=== PATIENT | female | born 1950 | race Caucasian/White ===

== ENCOUNTER 2018-11-13 21:28 | Inpatient (IN) ==
[2018-11-13] MEDS ORDERED: VANCOMYCIN HCL 1,750 MG in SODIUM CHLORIDE 0.9% 500 ML IV ONE (22:59)
[2018-11-13] MEDS ORDERED: VANCOMYCIN CONSULT ACTIVE PRN (22:59)
[2018-11-13] MEDS ORDERED: SODIUM CHLORIDE 0.9% 1000ML 1,000 ML IV SCH (23:00)
[2018-11-13] MEDS ORDERED: ACETAMINOPHEN 500 MG TAB PO STA (23:00)
[2018-11-13 23:20] LABS: Hematocrit (blood only) 32.4 % (37-47); Hemoglobin 11.1 g/dL (12.0-16.0); Mean Corpuscular Hgb Conc 34.3 g/dL (32-36); Mean Corpuscular Volume 87.8 fL (80-100); Platelet Count 157 K/uL (130-400); RDW Coefficient of Variation 14.3 % (11.5-14.5); RDW Standard Deviation 45.7 fL (36.4-46.3); Red Blood Count 3.69 M/uL (4.2-5.4); White Blood Count 16.51 K/uL (4.8-10.8)
[2018-11-13 23:38] LABS: Alanine Aminotransferase 27 U/L (12-78); Albumin Level 2.9 gm/dl (3.4-5.0); Aspartate Aminotransferase 21 U/L (15-37); BUN Creatinine Ratio 18.4 (10-20); Blood Urea Nitrogen 17 mg/dl (7-18); Calcium 7.9 mg/dl (8.5-10.1); Carbon Dioxide 21 mmol/L (21-32); Chloride 106 mmol/L (98-107); Creatinine Clr Calc Pharmacy 58.8 ml/min; Est GFR (African American) 75.1; Est GFR (Non-African American) 64.8; Glucose 105 mg/dl (70-99); Potassium 3.7 mmol/L (3.5-5.1); Sodium 136 mmol/L (136-145)
[2018-11-13 23:43] LABS: Albumin Globulin Ratio 0.9 (0.9-2); Alkaline Phosphatase 58 U/L (45-117); Bilirubin,Total 1.1 mg/dl (0.2-1); Globulin 3.2 gm/dl (2.5-4.0); Total Protein 6.1 gm/dl (6.4-8.2); Troponin I < 0.015 ng/ml (0-0.045)
[2018-11-13] MEDS ORDERED: LACTATED RINGER'S 1,000 ML IV ONE (23:48)
[2018-11-13 23:55] LABS: Basophils # (auto) 0.01 K/uL (0-0.2); Basophils % (auto) 0.1 %; Dohle Bodies Occasional; Immature Granulocytes # (auto) 0.04 K/uL (0.00-0.02); Immature Granulocytes % (auto) 0.2 %; Lymphocytes # (auto) 0.83 K/uL (1.2-3.4); Monocytes # (auto) 1.22 K/uL (0.11-0.59); Monocytes % (auto) 7.4 %; Neutrophils # (auto) 14.41 K/uL (1.4-6.5); Neutrophils % (auto) 87.3 %
--- NOTE | 2018-11-14 01:04 | Emergency Department Note ---
Entered by Marychuy Mcgowan acting as a scribe for History of Present Illness General Chief complaint: Hypotension Stated complaint: LOW BP, FEVER Source: patient History of Present Illness Onset (ago): unknown (this afternoon) Location: left and right (generalized) Maximum Pain Intensity: 5 Quality: + other (hypotension) Associated symptoms: + denies other symptoms (abdominal pain), + fever/chills, + headaches, + weakness and + other (diarrhea); no cough, no nausea/vomiting and no shortness of breath The patient is a 68 year old female who presents to the Emergency Room with complaints of hypotension at home this afternoon. The patient was seen here this morning and was discharged with a diagnosis of cellulitis on her RLE. She states her symptoms started 2 days. She reports hen she was home this afternoon her blood pressure dropped to 88/55. She complains of weakness, diarrhea, headache, and fevers. She denies nausea, shortness of breath, cough, or abdominal pain. Home Medications Home Medications Medication Instructions Recorded Confirmed Type cholecalciferol (vitamin D3) 2,000 unit PO DAILY 05/01/18 11/13/18 History [Vitamin D3] digoxin 125 mcg PO QAM 05/01/18 11/13/18 History furosemide 20 mg PO QAM 05/01/18 11/13/18 History metoprolol succinate 25 mg PO QAM 05/01/18 11/13/18 History omega 4-gyi-cin-fish oil [Fish Oil] 1 cap PO DAILY 05/01/18 11/13/18 History potassium chloride 10 meq PO QAM 05/01/18 11/13/18 History warfarin [Jantoven] 2.5 mg PO 5XWK 05/01/18 11/13/18 History warfarin [Jantoven] 5 mg PO 2XWK 05/01/18 11/13/18 History cephalexin [Keflex] 500 mg PO QID 7 Days #28 cap 11/13/18 11/13/18 Rx Allergies Allergy/AdvReac Type Severity Reaction Status Date / Time No Known Allergies Allergy Verified 11/13/18 07:28 Past Med/Surg History Medical History Angiomyolipoma of left kidney [address] Pierce Atrial fibrillation CARDIOVERSION X2. UNSUCCESSFUL. History of cardioversion Hypertension On anticoagulant therapy Osteoarthritis Sleep apnea CPAP WITH 2LPM AT HS. Surgical History History of bilateral tubal ligation History of cholecystectomy History of colonoscopy History of cystoscopy Left radial head fracture REPAIR with RADIAL HEAD IMPLANT S/P laparoscopy FOR REMOVAL OF CYST FROM LEFT KIDNEY (BENIGN) Family History Brother Family history of diabetes mellitus Social History Preferred Language: Micronesian Communication Ability: Effective Beliefs That Will Affect Care: None Current Living Situation: Spouse Feels Safe at Home: Yes Smoking Status: Never smoker Tobacco Type: cigarettes Cigarettes Per Day: 10 CIGS X 20 YEARS Second Hand Exposure: No Hx Alcohol Use: Yes Alcohol type: wine Hx Substance Use: No Review of Systems See HPI for pertinent positives & negatives. and A total of 10 systems reviewed and were otherwise negative Physical Exam Vital Signs Vital Signs - 24 hr 11/13/18 21:36 11/13/18 22:20 11/13/18 23:00 Temperature 38.3 C H Temperature Source Oral Sepsis Recent Fever Within 48 Hours Yes Sepsis New/Unexplained Change in Mental Status No Sepsis Action Taken by Nursing No Action Required Pulse Rate 93 H 94 H Pulse Rate [Right Finger] 86 Pulse Rate from SpO2 Sensor Pulse Rhythm Regular Pulse Strength Normal Respiratory Rate 24 20 19 Respiratory Effort / Characteristics Non-Labored Respiratory Depth Normal Respiratory Pattern Regular Blood Pressure 110/64 98/60 L Blood Pressure [Right Arm] 113/55 L Blood Pressure Mean 79 72 Blood Pressure Mean [Right Arm] 74 Blood Pressure Position Sitting Pulse Oximetry 94 90 Oxygen Delivery Method Room Air Room Air 11/14/18 00:00 11/14/18 00:23 11/14/18 00:30 Temperature 37.0 C Temperature Source Oral Sepsis Recent Fever Within 48 Hours Sepsis New/Unexplained Change in Mental Status Sepsis Action Taken by Nursing Pulse Rate 93 H 76 Pulse Rate [Right Finger] Pulse Rate from SpO2 Sensor 90 78 Pulse Rhythm Pulse Strength Respiratory Rate 18 20 Respiratory Effort / Characteristics Respiratory Depth Respiratory Pattern Blood Pressure 91/54 L 94/52 L Blood Pressure [Right Arm] Blood Pressure Mean 66 66 Blood Pressure Mean [Right Arm] Blood Pressure Position Pulse Oximetry 91 90 Oxygen Delivery Method GENERAL: Awake, alert, fatigued-appearing, in no distress HENT: Normocephalic, atraumatic. Oropharynx unremarkable. EYES: Normal conjunctiva. Sclera non-icteric. NECK: Supple. No nuchal rigidity. RESPIRATORY: Clear to auscultation. Normal respiratory effort. CARDIAC: Normal rate. Irregular rhythm. Extremities warm and well perfused. GI: Soft, non-distended. No tenderness to palpation. No rebound or guarding. No masses. RECTAL: Deferred. MUSCULOSKELETAL: Atraumatic. Chest examination reveals no tenderness. There is no CVA tenderness to palpation. LOWER EXTREMITIES: Calves are equal size bilaterally and non-tender. 1+ lower extremity edema. Erythema and tenderness RLE below knee, no crepitus. NVI RLE. NEURO: Normal sensorium. No sensory or motor deficits noted. No facial droop. SKIN: Warm and dry. No jaundice noted. Course 4: The patient was evaluated in room C2B. A complete history and physical exam was performed. 0005: I discussed the patient's case with Dr. Whelan [facility]. He agrees to evaluate the patient for further management. 0010: I updated the patient on her test results. She is in agreement with the treatment plan. Consultations Consultation #1: I discussed the patient's case with Dr. Whelan [facility]. He agrees to evaluate the patient for further management. Time: 00:05 Administered Medications Vancomycin HCl 1,750 mg/ (Sodium Chloride) 535 mls @ 200 mls/hr IV NOW ONE; Protocol Stop: 11/14/18 01:39 Last Admin: 11/14/18 00:17 Dose: 200 mls/hr Documented by: [id number] Discontinued Medications Acetaminophen (Tylenol) 1,000 mg PO NOW STA Stop: 11/13/18 23:01 Last Admin: 11/13/18 23:18 Dose: 1,000 mg Documented by: [id number] Sodium Chloride (Nss 1000ml) 1,000 mls @ 999 mls/hr IV .Q1H1M SERGIO Stop: 11/14/18 00:00 Last Infusion: 11/14/18 00:32 Dose: 0 mls/hr Documented by: [id number] Admin: 11/13/18 23:18 Dose: 999 mls/hr Documented by: [id number] Lactated Ringer's (Lr) 1,000 mls @ 999 mls/hr IV .Q1H1M ONE Stop: 11/14/18 00:48 Last Admin: 11/14/18 00:22 Dose: 999 mls/hr Documented by: [id number] Medical Decision Making Differential Diagnosis Etiologies such as viral syndrome, otitis, pharyngitis, pneumonia, influenza, meningitis, urinary tract infection, sepsis, bacteremia, as well as others were entertained. Medical Records Attestation: I reviewed the patient's medical records. Home Medications Current Medication List: was personally reviewed by me Laboratory Data Attestation: I reviewed the patient's lab results. Result diagrams: 11/13/18 23:11 11/13/18 23:11 Lab Results 11/13/18 11/13/18 11/13/18 Range/Units 23:11 23:11 23:11 WBC 16.51 H (4.8-10.8) K/uL RBC 3.69 L (4.2-5.4) M/uL Hgb 11.1 L (12.0-16.0) g/dL Hct 32.4 L (37-47) % MCV 87.8 (80-100) fL MCH 30.1 (25-34) pg MCHC 34.3 (32-36) g/dL RDW Std Deviation 45.7 (36.4-46.3) fL RDW Coeff of Alfonso 14.3 (11.5-14.5) % Plt Count 157 (130-400) K/uL MPV 10.0 (7.4-10.4) fL Immature Gran % (Auto) 0.2 % Neut % (Auto) 87.3 % Lymph % (Auto) 5.0 % Carter % (Auto) 7.4 % Eos % (Auto) 0.0 % Baso % (Auto) 0.1 % Immature Gran # (Auto) 0.04 H (0.00-0.02) K/uL Neut # (Auto) 14.41 H (1.4-6.5) K/uL Lymph # (Auto) 0.83 L (1.2-3.4) K/uL Carter # (Auto) 1.22 H (0.11-0.59) K/uL Eos # (Auto) 0.00 (0-0.5) K/uL Baso # (Auto) 0.01 (0-0.2) K/uL Dohle Bodies Occasional Sodium 136 (136-145) mmol/L Potassium 3.7 (3.5-5.1) mmol/L Chloride 106 (98-107) mmol/L Carbon Dioxide 21 (21-32) mmol/L Anion Gap 9.0 (3-11) BUN 17 (7-18) mg/dl Creatinine 0.90 (0.6-1.2) mg/dl Est Cr Clr Drug Dosing 58.8 ml/min Est GFR ( Amer) 75.1 Est GFR (Non-Af Amer) 64.8 BUN/Creatinine Ratio 18.4 (10-20) Glucose 105 H (70-99) mg/dl Lactate 1.0 (0.4-2.0) mmol/L Calcium 7.9 L (8.5-10.1) mg/dl Total Bilirubin 1.1 H (0.2-1) mg/dl AST 21 (15-37) U/L ALT 27 (12-78) U/L Alkaline Phosphatase 58 (45-117) U/L Troponin I < 0.015 (0-0.045) ng/ml Total Protein 6.1 L (6.4-8.2) gm/dl Albumin 2.9 L (3.4-5.0) gm/dl Globulin 3.2 (2.5-4.0) gm/dl Albumin/Globulin Ratio 0.9 (0.9-2) Digoxin (0.8-2.0) ng/ml 11/13/18 Range/Units 23:11 WBC (4.8-10.8) K/uL RBC (4.2-5.4) M/uL Hgb (12.0-16.0) g/dL Hct (37-47) % MCV (80-100) fL MCH (25-34) pg MCHC (32-36) g/dL RDW Std Deviation (36.4-46.3) fL RDW Coeff of Alfonso (11.5-14.5) % Plt Count (130-400) K/uL MPV (7.4-10.4) fL Immature Gran % (Auto) % Neut % (Auto) % Lymph % (Auto) % Carter % (Auto) % Eos % (Auto) % Baso % (Auto) % Immature Gran # (Auto) (0.00-0.02) K/uL Neut # (Auto) (1.4-6.5) K/uL Lymph # (Auto) (1.2-3.4) K/uL Carter # (Auto) (0.11-0.59) K/uL Eos # (Auto) (0-0.5) K/uL Baso # (Auto) (0-0.2) K/uL Dohle Bodies Sodium (136-145) mmol/L Potassium (3.5-5.1) mmol/L Chloride (98-107) mmol/L Carbon Dioxide (21-32) mmol/L Anion Gap (3-11) BUN (7-18) mg/dl Creatinine (0.6-1.2) mg/dl Est Cr Clr Drug Dosing ml/min Est GFR ( Amer) Est GFR (Non-Af Amer) BUN/Creatinine Ratio (10-20) Glucose (70-99) mg/dl Lactate (0.4-2.0) mmol/L Calcium (8.5-10.1) mg/dl Total Bilirubin (0.2-1) mg/dl AST (15-37) U/L ALT (12-78) U/L Alkaline Phosphatase (45-117) U/L Troponin I (0-0.045) ng/ml Total Protein (6.4-8.2) gm/dl Albumin (3.4-5.0) gm/dl Globulin (2.5-4.0) gm/dl Albumin/Globulin Ratio (0.9-2) Digoxin 0.5 L (0.8-2.0) ng/ml Blood Pressure Blood Pressure Findings: Low blood pressure Blood Pressure Disposition: further management by hospitalist SAMMY Herrera Patient is a 68-year-old female presenting today with nausea, vomiting, dizziness, generalized fatigue and myalgias with fever and headache. States she had a low blood pressure at home. Was seen here earlier this morning and appears to have been diagnosed with some cellulitis of the right lower extremit y. CT of the chest also showed some mild asymmetric nodular thickening in the upper lungs infectious versus inflammatory. Abdominal CT showed no evidence of hydronephrosis or intestinal dysfunction. Patient is febrile however not significantly tachycardic - does have history of atrial fibrillation on digoxin. Blood pressures have been fluctuating while here. Again extensive evaluation earlier but patient with decreased oral intake and cellulitis of right lower extremity. Received ceftriaxone earlier. Concern for possible developing sepsis or worsening infection. Given this basic labs and cultures were obtained including lactate. IV fluids ordered. Worsening leukocytosis. Did order the patient vancomycin for broader gram-positive coverage. Given the patient's worsening clinical status do believe that observation here overnight for further monitoring and broader antibiotic coverage is indicated. She denies any significant shortness of breath symptoms and unsure if the prior CT findings do represent pneumonia or not but has received broad-spectrum antibiotic coverage. Digoxin level nontoxic. Do not believe this is cardiac. Discussed the patient she felt more comfortable with observation overnight given her weakness and cellulitis and the [facility] hospitalist was contacted. Do not believe this represents necrotizing fasciitis. Impression & Plan Cellulitis, Weakness Discharge Plan Visit Data Chief Complaint: Hypotension Stated Complaint: LOW BP, FEVER ED Provider: Jeffery Nassar Discharge Problem: Cellulitis, Weakness Patient Disposition: Being Evaluated by Hospitalist Forms Stand Alone Forms: My [facility] Prescriptions Prescriptions: No Action warfarin [Jantoven] 2.5 mg Tablet 2.5 mg PO 5XWK RF: 0 potassium chloride 10 mEq Tablet Extended Release 10 meq PO QAM RF: 0 warfarin [Jantoven] 5 mg Tablet 5 mg PO 2XWK RF: 0 digoxin 125 mcg Tablet 125 mcg PO QAM RF: 0 furosemide 20 mg Tablet 20 mg PO QAM RF: 0 metoprolol succinate 25 mg Tablet Extended Release 24 Hr 25 mg PO QAM RF: 0 cholecalciferol (vitamin D3) [Vitamin D3] 2,000 unit Capsule 2,000 unit PO DAILY RF: 0 omega 6-haf-jno-fish oil [Fish Oil] 1,000 mg (120 mg-180 mg) Capsule 1 cap PO DAILY RF: 0 cephalexin [Keflex] 500 mg capsule 500 mg PO QID 7 Days Qty: 28 RF: 0 Referrals Referrals: Stephania Hanna DO [Primary Care Provider] - Discharge Problem: Cellulitis Qualifiers: Site of cellulitis: extremity Site of cellulitis of extremity: lower extremity Laterality: right Qualified Code(s): L03.115 - Cellulitis of right lower limb The scribe's documentation has been prepared under my direction and personally reviewed by me in its entirety. I confirm that the note above accurately reflects all work, treatment, procedures, and medical decision making performed by me.
[2018-11-14] MEDS ORDERED: SODIUM CHLORIDE 0.9% 500 ML IV SCH (01:30)
[2018-11-14] MEDS ORDERED: ONDANSETRON INJ 2 MG/ML 2 ML VIAL IV PRN (02:26)
[2018-11-14] MEDS ORDERED: NITROGLYCERIN SL 0.4 MG/TAB TAB SL PRN (02:26)
[2018-11-14] MEDS ORDERED: VANCOMYCIN CONSULT ACTIVE PRN (02:26)
[2018-11-14] MEDS ORDERED: LEVOFLOXACIN CONSULT ACTIVE PRN (02:47)
[2018-11-14] MEDS ORDERED: LEVOFLOXACIN/D5W 750 MG/150 ML BAG IV SCH (03:00)
--- NOTE | 2018-11-14 03:05 | History and Physical Report ---
DATE OF ADMISSION: 11/13/2018 CHIEF COMPLAINT: Hypotension. HISTORY OF PRESENT ILLNESS: This patient is a 68-year-old female with past medical history significant for atrial fibrillation, diastolic congestive heart failure, macular degeneration and mild obstructive sleep apnea who presents with hypotension. The patient was in the Emergency Room early in the morning with a complaint of fever and hypotension. She was found to have white count of 13,000. Imaging studies showed lower extremity has some possible cellulitis and there is no deep venous thrombosis. She also complains of nausea, vomiting and diarrhea. CAT scan of the abdomen and pelvis was done which except for mild right inguinal lymphadenopathy showed no acute findings. CTA of the chest was also done. There was some mild asymmetric nodular intralobular septal thickening within upper lung zone, right greater than left, nonspecific, infectious or inflammatory pneumonitis was considered and also follow up CTA chest in 1 month to further evaluate. The patient's blood pressure improved with fluid bolus and she was discharged home on Keflex and advised to come back if worsening symptoms. The patient was again having temperatures and hypotension at home. Blood pressure was in 80's With fluids Blood pressure improving currently. The patient states she was in [place] and she came back on last Monday and after that she had 1 day of fever that got resolved and last Monday she noticed swelling and erythema in her right lower extremity. She ate some Tristanian food from [employer] and since yesterday, she had several episodes of nausea, vomiting and diarrhea.and then developed fever and hypotension that is why she came to the Emergency Room in the morning. Currently, nausea, vomiting and diarrhea resolved. Denies any chest pain. She always gets short of breath on exertion because of her atrial fibrillation. She denies any cough. No headache. No blurred vision. No runny nose. No sore throat. No difficulty swallowing. Appetite is okay. Currently, no abdominal pain. No black stool or blood in the stools. No hematuria. No burning micturition. Otherwise, she ambulates okay. She lives with her . ALLERGIES: No known drug allergies. PAST MEDICAL HISTORY: As mentioned above. PAST SURGICAL HISTORY: Colonoscopy with biopsy , adenomatous polyps removal, tubal ligation and left radial head fracture with surgical repair. MEDICATIONS: The patient is on potassium chloride 20 mEq p.o. daily, digoxin 125 mcg daily, Toprol-XL 25 mg p.o. daily, Jantoven 5 mg p.o. daily, furosemide 20 mg p.o. daily, Tylenol 1000 mg every 8 hours p.r.n., vitamin D 1000 units p.o. daily and oxygen 2 liters through continuous positive airway pressure during sleep. FAMILY HISTORY: Significant for father with asthma, congestive heart failure and hypertension. Mother has thyroid disorder, hypertension, congestive heart failure and asthma. Son has asthma. SOCIAL HISTORY: , lives with . Quit smoking in 1984, smoked half a pack a day for 20 years. Alcohol socially. No drug use. REVIEW OF SYMPTOMS: As per HPI. Rest of review of symptoms is negative. PHYSICAL EXAMINATION: GENERAL: The patient is obese, not in acute distress. VITAL SIGNS: Temperature was 38.3, pulse 76, respiratory rate 20, blood pressure 94/52 and oxygen 98% on room air. HEENT: No pallor. No icterus. Pupils are equal, round and reactive to light. NECK: No JVD. No neck mass. No carotid bruit. CARDIOVASCULAR: S1, S2 heard. Regular rate and rhythm. No murmur. No gallop. RESPIRATORY SYSTEM: Normal AP diameter. No accessory muscle use. No wheezing. No crackles. ABDOMEN: Soft. Bowel sounds present. Nontender. CENTRAL NERVOUS SYSTEM: Cranial nerves II through XII grossly intact. Nonfocal. EXTREMITIES: Lower extremity edema present. Right lower extremity is erythematous. LABORATORY DATA: WBC 16, hemoglobin 11.1, hematocrit 32.4 and platelets 157. Sodium 136, potassium 3.7, chloride 106, bicarbonate 21, BUN 17, creatinine 0.9, serum glucose 105, lactate 1, calcium 7.9, total bilirubin 1.1, AST 21, ALT 27 and alkaline phosphatase 58. Troponin I less than 0.015. Digoxin 0.5. CT abdomen and pelvis done on 11/13/2018 morning shows interval development of mild right inguinal lymphadenopathy with associated fat stranding. This is nonspecific, could be reactive to cellulitis. Ultrasound in followup is recommended to demonstrate resolution and to exclude less likely possibility of lymphoproliferative disorder, slight increase in size in a 9 mm right retroperitoneal soft tissue maeve lymph node, this is of uncertain clinical significance, increase in size and mildly enlarged distal thoracic periaortic lymph nodes, cholecystectomy. Chest CTA, no pulmonary embolism, mild asymmetric nodular intralobular septal thickening within upper lung zone, prominent distribution, right greater than left is nonspecific, infectious or inflammatory pneumonitis with pulmonary edema versus lymphangitic carcinomatosis are differential diagnosis. Follow up chest in 1 month is recommended. Cardiomegaly. Venous Doppler, no evidence of deep venous thrombosis in right lower extremity. Electrocardiogram, atrial fibrillation at a rate of [address] abnormalities. ASSESSMENT AND PLAN: This is a 68-year-old female who presents with possible sepsis from cellulitis. 1. Possible early sepsis. Meets criteria with hypotension, temperature spike, worsening leukocytosis, heart rate initially was in 90s and lower extremity cellulitis, lactic acid is normal at 1, possible pneumonitis on CAT scan. We will empirically treat with I.V. vancomycin and I.V. Levaquin and I.V. fluids. Follow the blood cultures. Check urinalysis and closely monitor. The patient was recently in [place], but denies any tick bites. We will monitor response. The patient needs follow up CTA of the chest to make sure there is resolution of the lesions found on CAT scan and also ultrasound or ct scan for resolution of groin lymphadenopathy. 2. History of atrial fibrillation, rate controlled, on digoxin and Toprol-XL and Coumadin. INR was 2.9 in the morning. We will follow PT/INR. 3. Nausea, vomiting and diarrhea after eating Tristanian food that is resolved now. possible gastroenteritis. possibly contributing to hypotension.we will monitor. 4. Sleep apnea, on continuous positive airway pressure. 5. Diastolic congestive heart failure on Lasix and potassium supplements which are held for now, getting I.V. fluids. Monitor for fluid overload. 6. Deep venous thrombosis prophylaxis, on Coumadin. DISPOSITION: Admit to Med/Surg tele. Level 1 full code. Physical therapy and occupational therapy prior to discharge. Social Service to help with discharge planning. [facility]
[2018-11-14] MEDS: SODIUM CHLORIDE 0.9% 1000ML 1,000 ML IV SCH ×2 (03:14→12:52)
--- NOTE | 2018-11-14 05:13 | Pharmacy Report ---
Pharmacy Abx Initial Consult - Date of Service November 14, 2018 - Pharmacy Dosing Scope Date of Consult: 11/13/18 Consultation requested by: Dr. Whelan Pharmacy is consulted to initiate Levaquin and Vanomycin IV dosing therapy, order appropriate labs and adjust drug dose/frequency. - Subjective The patient is a 68 year old F admitted on 11/14/18 01:29 who presents to the ED with hypotension. She has had some N,V,D and also complains of some swelling of her lower extremity. Dr. Whelan suspects possible sepsis with cellulitis source. In addition he prescribed Levaquin for possible PNX. - Objective Height: 5 ft 1 in Weight: 88.5 kg Vital Signs (Past 12hrs): Vital Signs Temp Pulse Pulse Resp BP BP Pulse Ox 11/14/18 01:30 78 18 100/57 L 91 11/14/18 01:01 82 18 95/40 L 93 11/14/18 00:30 76 20 94/52 L 90 11/14/18 00:23 37.0 C 11/14/18 00:00 93 H 18 91/54 L 91 11/13/18 23:00 94 H 19 98/60 L 11/13/18 22:20 86 20 113/55 L 90 11/13/18 21:36 38.3 C H 93 H 24 110/64 94 Lab Results (24hrs): Laboratory Tests (24 Hours) 11/13/18 11/13/18 23:11 23:11 WBC 16.51 H Neut # (Auto) 14.41 H Creatinine 0.90 Est Cr Clr Drug Dosing 58.8 Micro Results: 11/13/18 23:39 Aerobic Blood Culture - Pending Blood Anaerobic Blood Culture - Pending 11/13/18 23:11 Aerobic Blood Culture - Pending Blood Anaerobic Blood Culture - Pending - Assessment & Plan Assessment 68 year old F with possible sepsis (cellulitis/pnx) Plan Vancomycin IV * Estimated PK Parameters: Vd 0.7 L/kg, Prabhu 0.053 hr-1, t1/2 13 hr * Loading dose: 1750 mg (20mg/kg) in the ED * Maintenance dose: 1250 mg IV ([14 mg/kg) every 16 hours * Goal trough level: 15 to 20 mcg/mL * Trough level ordered prior to 1600 dose on 11/15/18 * A less than traditional dose and extended dosing interval has been selected due to likelihood of drug accumulation in obese patient. Levaquin 750mg IV every 24hours indicated for PNX, no change for est crcl greater than 50ml/min Pharmacy will continue to follow and will adjust dose/frequency as necessary. Thank you.
[2018-11-14 07:01] LABS: Basophils # (auto) 0.02 K/uL (0-0.2); Basophils % (auto) 0.2 %; Eosinophils # (auto) 0.01 K/uL (0-0.5); Eosinophils % (auto) 0.1 %; Hematocrit (blood only) 31.9 % (37-47); Hemoglobin 10.8 g/dL (12.0-16.0); Immature Granulocytes # (auto) 0.03 K/uL (0.00-0.02); Immature Granulocytes % (auto) 0.3 %; Lymphocytes # (auto) 0.76 K/uL (1.2-3.4); Lymphocytes % (auto) 6.6 %; Mean Corpuscular Hgb Conc 33.9 g/dL (32-36); Mean Corpuscular Volume 87.9 fL (80-100); Mean Platelet Volume 9.8 fL (7.4-10.4); Monocytes % (auto) 7.8 %; Neutrophils # (auto) 9.77 K/uL (1.4-6.5); Platelet Count 129 K/uL (130-400); RDW Coefficient of Variation 14.5 % (11.5-14.5); RDW Standard Deviation 47.3 fL (36.4-46.3); Red Blood Count 3.63 M/uL (4.2-5.4); White Blood Count 11.49 K/uL (4.8-10.8)
[2018-11-14 07:13] LABS: INR 2.3 (0.9-1.1); Prothrombin Time 22.3 Seconds (9.0-12.0)
[2018-11-14 07:35] LABS: BUN Creatinine Ratio 19.5 (10-20); Calcium 7.8 mg/dl (8.5-10.1); Creatinine Clr Calc Pharmacy 74.8 ml/min; Est GFR (African American) 98.3; Est GFR (Non-African American) 84.9; Magnesium 1.8 mg/dl (1.8-2.4); Potassium 3.7 mmol/L (3.5-5.1)
[2018-11-14 07:47] LABS: Albumin Level 2.5 gm/dl (3.4-5.0); Bilirubin Direct 0.3 mg/dl (0-0.2); Total Protein 5.6 gm/dl (6.4-8.2)
[2018-11-14 08:17] LABS: Appearance Urine Clear (Clear); Bilirubin Urine Negative (Negative); Blood Urine Trace (Negative); Color Urine Yellow; Glucose Urine UA Negative (Negative); Ketones Urine Negative (Negative); Leukocyte Esterase Urine Negative (Negative); Nitrite Urine Negative (Negative); Protein Urine Negative (Negative); Specific Gravity Urine 1.006 (1.000-1.030); Urobilinogen Urine Negative (Negative)
[2018-11-14] MEDS: METOPROLOL SUCC 25MG EXT REL TAB PO SCH (08:22)
[2018-11-14] MEDS: CHOLECALCIFEROL 1,000 UNITS TAB PO SCH (08:22)
[2018-11-14] MEDS ORDERED: ENOXAPARIN INJ 40 MG/0.4 ML SYR SQ SCH (09:00)
[2018-11-14 09:19] LABS: Bacteria Urine Negative (Negative); RBC Urine 0-4 /hpf (0-4); WBC Urine 0-5 /hpf (0-5)
--- NOTE | 2018-11-14 13:44 | Hospitalist Progress Note ---
Date of Service November 14, 2018 Assessment & Plan (1) Cellulitis of right lower extremity: Vanco and Levaquin changed to cephalexin 500 mg p.o. 4 times daily. Blood cultures pending. White count has improved. (2) Atrial fibrillation, chronic: INR therapeutic on warfarin, continue digoxin and Toprol per home regimen. (3) Sleep apnea: Use of home CPAP. (4) DVT prophylaxis: Therapeutic on warfarin Full code Disposition-transfer to [facility], likely home in a.m. pending improvement of redness on p.o. medications. Jessica King DO [facility] Hospitalist Subjective 68 yo F with cellulitis of the RLE, improved since admission. Denies fevers or chills. Tolerating PO. Review of Systems Review of Systems: All systems reviewed & are unremarkable except as noted in HPI & below Physical Exam Physical Exam: CONSTITUTIONAL: WNWD, vitals as above, generally well- appearing EYES: normal conjunctivae, no scleral icterus ENT: MMM RESPIRATORY: clear to auscultation bilaterally, no crackles, rales or wheezes, normal respiratory effort CARDIOVASCULAR: regular rate and rhythm, S1 and 2 heard without murmurs, gallops or rubs, no JVD, no peripheral edema GASTROINTESTINAL: normal bowel sounds, soft, nontender, nondistended MUSCULOSKELETAL: strength 5/5 throughout, head is normocephalic and atraumatic SKIN: warm and dry, RLE slightly erythematous and still somewhat swollen,and red NEUROLOGIC: CN II through XII grossly intact, no gross focal deficit PSYCHIATRIC: alert cooperative and oriented to person, place and time. Euthymic mood, makes good eye contact, language grossly intact, recent and remote memory grossly intact. LYMPHATIC: no LAD Results & Data Vital Signs (Past 12 Hours) Vital Signs Temp Pulse Pulse Resp BP BP Pulse Ox 11/14/18 12:39 36.6 C 83 16 114/74 94 11/14/18 07:25 69 11/14/18 07:00 36.4 C L 75 19 104/70 95 11/14/18 05:04 68 11/14/18 02:47 36.5 C 77 16 107/70 92 Laboratory Results Short CBC 11/13/18 11/14/18 Range/Units 23:11 06:50 WBC 16.51 H 11.49 H (4.8-10.8) K/uL Hgb 11.1 L 10.8 L (12.0-16.0) g/dL Hct 32.4 L 31.9 L (37-47) % Plt Count 157 129 L (130-400) K/uL BMP 11/13/18 11/14/18 23:11 06:50 Sodium 136 139 Potassium 3.7 3.7 Chloride 106 112 H Carbon Dioxide 21 21 BUN 17 14 Creatinine 0.90 0.72 Glucose 105 H 109 H Calcium 7.9 L 7.8 L Cardiac Enzymes 11/13/18 Range/Units 23:11 Troponin I < 0.015 (0-0.045) ng/ml Liver Function 11/13/18 11/14/18 Range/Units 23:11 06:57 Total Bilirubin 1.1 H 1.0 (0.2-1) mg/dl Direct Bilirubin 0.3 H (0-0.2) mg/dl AST 21 20 (15-37) U/L ALT 27 23 (12-78) U/L Alkaline Phosphatase 58 54 (45-117) U/L Albumin 2.9 L 2.5 L (3.4-5.0) gm/dl Urine 11/14/18 Range/Units 07:50 Urine Color Yellow Urine Appearance Clear (Clear) Urine pH 7.0 (4.5-7.5) Ur Specific [place] 1.006 (1.000-1.030) Urine Protein Negative (Negative) Urine Glucose (UA) Negative (Negative) Medications Administered Current Inpatient Medications Acetaminophen (Tylenol) 650 mg PO Q4H PRN PRN Reason: Pain or Fever Stop: 12/14/18 02:25 Digoxin (Lanoxin) 0.125 mg PO DAILY@1600 [facility] Stop: 12/14/18 15:59 Sodium Chloride (Nss 1000ml) 1,000 mls @ 100 mls/hr IV .Q10H [facility] Stop: 12/14/18 02:25 Last Admin: 11/14/18 12:52 Dose: 100 mls/hr Documented by: Levofloxacin/Dextrose (Levaquin/D5w) 750 mg in 150 mls @ 100 mls/hr IV Q24H [facility]; Protocol Stop: 11/21/18 02:59 Last Infusion: 11/14/18 04:44 Dose: Infused Documented by: Vancomycin HCl 1,250 mg/ (Sodium Chloride) 275 mls @ 125 mls/hr IV Q16H [facility]; Protocol Stop: 11/24/18 15:59 Metoprolol Succinate (Toprol Xl) 25 mg PO QAM [facility] Stop: 12/14/18 08:59 Last Admin: 11/14/18 08:22 Dose: 25 mg Documented by: Miscellaneous Information (Consult) 1 ea N/A UD PRN PRN Reason: Consult Stop: 12/14/18 02:46 Miscellaneous Information (Consult) 1 ea N/A UD PRN PRN Reason: Consult Stop: 12/14/18 02:25 Nitroglycerin (Nitrostat) 0.4 mg SL UD PRN PRN Reason: Chest Pain Stop: 12/14/18 02:25 Ondansetron HCl (Zofran) 4 mg IV Q6H PRN PRN Reason: Nausea Stop: 12/14/18 02:25 Vitamin D (Vitamin D3) 2,000 units PO DAILY [facility] Stop: 12/14/18 08:59 Last Admin: 11/14/18 08:22 Dose: 2,000 units Documented by: Warfarin Sodium (Coumadin) 2.5 mg PO SuTuWeThSa@1600 [facility] Stop: 12/14/18 15:59 Warfarin Sodium (Coumadin) 5 mg PO MoFr@1600 [facility] Stop: 12/16/18 15:59
[2018-11-14] MEDS ORDERED: VANCOMYCIN HCL 1,250 MG in SODIUM CHLORIDE 0.9% 250 ML IV SCH (16:00)
[2018-11-14] MEDS: WARFARIN SOD 2.5 MG TAB PO SCH (17:22)
[2018-11-14] MEDS: DIGOXIN 0.125 MG TAB PO SCH (17:23)
[2018-11-14] MEDS: cephALEXin 500 MG CAP PO SCH ×2 (18:26→19:51)
[2018-11-14] MEDS: ACETAMINOPHEN 325 MG TAB PO PRN (19:52)
[2018-11-15 08:11] LABS: Hematocrit (blood only) 34.3 % (37-47); Hemoglobin 11.2 g/dL (12.0-16.0); Mean Corpuscular Hgb Conc 32.7 g/dL (32-36); Mean Corpuscular Volume 90.5 fL (80-100); Mean Platelet Volume 10.5 fL (7.4-10.4); Platelet Count 161 K/uL (130-400); RDW Coefficient of Variation 14.8 % (11.5-14.5); Red Blood Count 3.79 M/uL (4.2-5.4); White Blood Count 9.47 K/uL (4.8-10.8)
[2018-11-15 08:19] LABS: INR 1.6 (0.9-1.1); Prothrombin Time 16.2 Seconds (9.0-12.0)
[2018-11-15 08:46] LABS: BUN Creatinine Ratio 13.5 (10-20); Calcium 8.3 mg/dl (8.5-10.1); Creatinine Clr Calc Pharmacy 88.3 ml/min; Est GFR (African American) 106.5; Est GFR (Non-African American) 91.9; Potassium 3.6 mmol/L (3.5-5.1)
[2018-11-15] MEDS: cephALEXin 500 MG CAP PO SCH (09:34)
[2018-11-15] MEDS: FUROSEMIDE 20 MG TAB PO SCH (09:34)
[2018-11-15] MEDS: METOPROLOL SUCC 25MG EXT REL TAB PO SCH (09:34)
[2018-11-15] MEDS: CHOLECALCIFEROL 1,000 UNITS TAB PO SCH (09:34)
[2018-11-15] MEDS: POTASSIUM CHLORIDE 10 MEQ TABCR PO SCH (09:35)
[2018-11-15] MEDS ORDERED: ENOXAPARIN INJ 40 MG/0.4 ML SYR SQ ONE (10:14)
--- NOTE | 2018-11-15 10:21 | Hospitalist Progress Note ---
Date of Service November 15, 2018 Assessment & Plan (1) Cellulitis of right lower extremity: Worsened erythema and swelling on cephalexin overnight. Although leukocytosis is resolved to normal and she remains afebrile with worsened erythema and swelling we will switch to clindamycin 300 mg p.o. 3 times daily. We will monitor her overnight for improvement in this and plan to send home in a.m. if she is getting better. She remains afebrile and blood cultures are preliminarily negative. (2) Atrial fibrillation, chronic: INR subtherapeutic therapeutic on warfarin, continue digoxin and Toprol per home regimen. Give increased dose of warfarin today 5 mg. Lovenox 40 mg given x1 to cover for DVT prophylaxis while INR subtherapeutic. (3) Sleep apnea: Use of home CPAP. (4) DVT prophylaxis: Warfarin/Lovenox 40 Full code Disposition- likely home in a.m. pending improvement on new antibiotic Jessica King DO [facility] Hospitalist Subjective Patient denies fevers or chills, area of redness is worsened today up to distal knee from ankle. She reports some discomfort with the swelling present. Tolerating p.o. and slept well overnight. Review of Systems Review of Systems: All systems reviewed & are unremarkable except as noted in HPI & below Physical Exam Physical Exam: CONSTITUTIONAL: WNWD, vitals as above, generally well- appearing EYES: normal conjunctivae, no scleral icterus ENT: MMM RESPIRATORY: clear to auscultation bilaterally, no crackles, rales or wheezes, normal respiratory effort CARDIOVASCULAR: regular rate and rhythm, S1 and 2 heard without murmurs, gallops or rubs, no JVD, no peripheral edema GASTROINTESTINAL: normal bowel sounds, soft, nontender, nondistended MUSCULOSKELETAL: strength 5/5 throughout, head is normocephalic and atraumatic SKIN: warm and dry, RLE with worsened erythema and swelling today from ankle to just distal to knee. Erythema extends around the lower leg posteriorly NEUROLOGIC: CN II through XII grossly intact, no gross focal deficit PSYCHIATRIC: alert cooperative and oriented to person, place and time. Euthymic mood, makes good eye contact, language grossly intact, recent and remot e memory grossly intact. LYMPHATIC: no LAD Results & Data Vital Signs (Past 12 Hours) Vital Signs Temp Pulse Resp BP Pulse Ox 11/15/18 07:40 37.1 C 85 16 124/75 94 11/14/18 22:45 36.7 C 76 16 131/56 L 97 Laboratory Results Short CBC 11/15/18 Range/Units 07:23 WBC 9.47 (4.8-10.8) K/uL Hgb 11.2 L (12.0-16.0) g/dL Hct 34.3 L (37-47) % Plt Count 161 (130-400) K/uL BMP 11/15/18 07:23 Sodium 143 Potassium 3.6 Chloride 114 H Carbon Dioxide 21 BUN 8 D Creatinine 0.61 Glucose 86 Calcium 8.3 L Medications Administered Current Inpatient Medications Acetaminophen (Tylenol) 650 mg PO Q4H PRN PRN Reason: Pain or Fever Stop: 12/14/18 02:25 Last Admin: 11/14/18 19:52 Dose: 650 mg Documented by: Clindamycin HCl (Cleocin) 300 mg PO Q8H [facility] Stop: 11/25/18 10:14 Digoxin (Lanoxin) 0.125 mg PO DAILY@1600 [facility] Stop: 12/14/18 15:59 Last Admin: 11/14/18 17:23 Dose: 0.125 mg Documented by: Enoxaparin Sodium (Lovenox) 40 mg SQ NOW ONE Stop: 11/15/18 10:15 [facility]urosem[facility] (Lasix) [facility] [place] [facility] Stop: 12/15/18 08:59 Last Admin: 11/15/18 09:34 Dose: 20 mg Documented by: Metoprolol Succinate (Toprol Xl) 25 mg PO [facility] Stop: 12/14/18 08:59 Last Admin: 11/15/18 09:34 Dose: 25 mg Documented by: Nitroglycerin (Nitrostat) 0.4 mg SL UD PRN PRN Reason: Chest Pain Stop: 12/14/18 02:25 Ondansetron HCl (Zofran) 4 mg IV Q6H PRN PRN Reason: Nausea Stop: 12/14/18 02:25 Potassium Chloride (Klor-Con M10) 10 meq [facility] [place] Stop: 12/15/18 08:59 Last Admin: 11/15/18 09:35 Dose: 10 meq Documented by: Vitamin D (Vitamin D3) 2,000 units PO DAILY [facility] Stop: 12/14/18 08:59 Last Admin: 11/15/18 09:34 Dose: 2,000 units Documented by: Warfarin Sodium (Coumadin) 5 mg PO ONE ONE Stop: 11/15/18 16:01 Warfarin Sodium (Coumadin) 2.5 mg PO SuTuWeThSa@1600 [facility] Stop: 12/14/18 15:59 Last Admin: 11/14/18 17:22 Dose: 2.5 mg Documented by: Warfarin Sodium (Coumadin) 5 mg PO MoFr@1600 [facility] Stop: 12/16/18 15:59
[2018-11-15] MEDS: CLINDAMYCIN HCL 150 MG CAP PO SCH ×2 (11:39→18:16)
[2018-11-15] MEDS ORDERED: VANCOMYCIN TROUGH ONE (15:30)
[2018-11-15] MEDS ORDERED: WARFARIN SOD 5 MG TAB PO ONE (16:00)
[2018-11-15] MEDS: DIGOXIN 0.125 MG TAB PO SCH (16:04)
[2018-11-15] MEDS: ACETAMINOPHEN 325 MG TAB PO PRN (22:38)
[2018-11-16] MEDS: CLINDAMYCIN HCL 150 MG CAP PO SCH ×3 (02:40→18:44)
[2018-11-16 05:42] LABS: Hemoglobin 11.5 g/dL (12.0-16.0); Mean Corpuscular Hgb Conc 32.9 g/dL (32-36); Mean Corpuscular Volume 89.7 fL (80-100); Mean Platelet Volume 10.3 fL (7.4-10.4); Platelet Count 165 K/uL (130-400); RDW Coefficient of Variation 14.6 % (11.5-14.5); RDW Standard Deviation 47.8 fL (36.4-46.3); White Blood Count 6.49 K/uL (4.8-10.8)
[2018-11-16 05:49] LABS: Prothrombin Time 19.5 Seconds (9.0-12.0)
[2018-11-16 06:14] LABS: BUN Creatinine Ratio 14.1 (10-20); Calcium 8.5 mg/dl (8.5-10.1); Creatinine Clr Calc Pharmacy 85.5 ml/min; Est GFR (African American) 105.3; Est GFR (Non-African American) 90.9; Potassium 3.7 mmol/L (3.5-5.1)
[2018-11-16] MEDS: METOPROLOL SUCC 25MG EXT REL TAB PO SCH (08:13)
[2018-11-16] MEDS: CHOLECALCIFEROL 1,000 UNITS TAB PO SCH (08:13)
[2018-11-16] MEDS: FUROSEMIDE 20 MG TAB PO SCH (08:13)
[2018-11-16] MEDS: POTASSIUM CHLORIDE 10 MEQ TABCR PO SCH (08:13)
[2018-11-16] MEDS: ACETAMINOPHEN 325 MG TAB PO PRN ×2 (08:18→16:14)
--- NOTE | 2018-11-16 13:14 | Infectious Disease Consult ---
Date of Consultation November 16, 2018 Assessment & Plan (1) Cellulitis of right lower extremity: clinically improving, afebrile, wbc normal. Agree with clinda, would give 14 days total. elevated leg, agree with edema clinic post d/c. moisturize skin. ok for d/c from ID standpoint when otherwise stable. History of Present Illness Attending Physician: Jessica King DO pt admitted with fevers and weakness, then developed a rle cellulitis, was initally treated with ancef, now on clinda and tolerating well. wbc was elevated on admission, 16, improved to 6 today. Overall feeling much better, no pain in leg, has some swelling but states she has chronic edema and is considering going to edema clinic. no f/c currently, tmax in Er 38.3, now afebrile. UA negative, 7/ blood cultures negative. States less red, able to walk, no pain, no n/v/d/abd pain, eating well, no gu symptoms, no cp, sob, cough. asking to go home. Allergies Allergy/AdvReac Type Severity Reaction Status Date / Time No Known Allergies Allergy Verified 11/13/18 07:28 Home Medications Home Medications Medication Instructions Recorded Confirmed Type cholecalciferol (vitamin D3) 2,000 unit PO DAILY 05/01/18 11/13/18 History [Vitamin D3] digoxin 125 mcg PO QAM 05/01/18 11/13/18 History furosemide 20 mg PO QAM 05/01/18 11/13/18 History metoprolol succinate 25 mg PO QAM 05/01/18 11/13/18 History omega 7-ngo-lab-fish oil [Fish Oil] 1 cap PO DAILY 05/01/18 11/13/18 History potassium chloride 10 meq PO QAM 05/01/18 11/13/18 History warfarin [Jantoven] 2.5 mg PO 5XWK 05/01/18 11/13/18 History warfarin [Jantoven] 5 mg PO 2XWK 05/01/18 11/13/18 History cephalexin [Keflex] 500 mg PO QID 7 Days #28 cap 11/13/18 11/13/18 Rx Patient History Medical History Angiomyolipoma of left kidney [address] Pierce Atrial fibrillation CARDIOVERSION X2. UNSUCCESSFUL. History of cardioversion Hypertension On anticoagulant therapy Osteoarthritis Sleep apnea CPAP WITH 2LPM AT HS. Surgical History History of bilateral tubal ligation History of cholecystectomy History of colonoscopy History of cystoscopy Left radial head fracture REPAIR with RADIAL HEAD IMPLANT S/P laparoscopy FOR REMOVAL OF CYST FROM LEFT KIDNEY (BENIGN) Family History Brother Family history of diabetes mellitus Social History Preferred Language: Malian Communication Ability: Effective Motor Runner Required: No Beliefs That Will Affect Care: None Current Living Situation: Spouse Feels Safe at Home: Yes Safety Concerns: Feels Safe At This Time Smoking Status: Never smoker Tobacco Type: cigarettes Cigarettes Per Day: 10 CIGS X 20 YEARS Second Hand Exposure: No Hx Alcohol Use: No Hx Substance Use: No Review of Systems Review of Systems: All systems reviewed & are unremarkable except as noted in HPI & below Physical Exam Constitutional: WD/WN, vitals as above Eyes: PERRL, conjunctivae normal, anicteric sclerae ENMT: external ear and nose normal, oropharynx normal Neck: normal visual inspection Respiratory: normal respiratory effort, lungs clear to auscultation Cardiovascular: RRR, no murmur, no edema Extremities: + edema Gastrointestinal (Abdomen): normal bowel sounds, soft, nontender, no hepatosplenomegaly Musculoskeletal: no cyanosis or clubbing, extremities motor strength 5/5 Skin: no rashes, warm and dry rle with min erythema to below knee, no warmth, non tender, edema noted r>l, no open wounds. Psychiatric: A+Ox3, euthymic affect Results & Data Vital Signs (Past 12 Hours) Vital Signs Temp Pulse Resp BP Pulse Ox 11/16/18 07:17 36.5 C 83 18 125/77 95 Laboratory Results Microbiology 11/13/18 23:39 Blood Aerobic Blood Culture - Preliminary No growth in Aerobic bottle after 48 hours. 11/13/18 23:39 Blood Anaerobic Blood Culture - Preliminary No growth in Anaerobic bottle after 48 hours. 11/13/18 23:11 Blood Aerobic Blood Culture - Preliminary No growth in Aerobic bottle after 48 hours. 11/13/18 23:11 Blood Anaerobic Blood Culture - Preliminary No growth in Anaerobic bottle after 48 hours.
[2018-11-16] MEDS ORDERED: VANCOMYCIN TROUGH ONE (15:30)
[2018-11-16] MEDS ORDERED: WARFARIN SOD 5 MG TAB PO SCH (16:00)
[2018-11-16] MEDS: DIGOXIN 0.125 MG TAB PO SCH (16:13)
[2018-11-16] MEDS ORDERED: TRAMADOL HCL 50 MG TABLET PO STA (16:22)
--- NOTE | 2018-11-16 16:23 | Hospitalist Progress Note ---
Date of Service November 16, 2018 Assessment & Plan (1) Sepsis: resolved on admission, had some sepsis associated hypotension. (2) Cellulitis of right lower extremity: Improving on the clindamycin. WBC improved. Afebrile. Blood cultures remain negative. ID consult with reassurance that the clindamycin is a good agent and will be needed for 14 days. Tylenol and adding Tramadol to manage pain. TEDs as tolerated. (3) Atrial fibrillation, chronic: INR 2.0 this am, continue digoxin and Toprol per home regimen. Warfarin per home dosing. (4) Sleep apnea: Use of home CPAP. (5) DVT prophylaxis: Warfarin Full code Disposition- likely home in a.m. pending improvement in pain and erythema. Jessica King DO [facility] Hospitalist Subjective redness still present but improved, pt and concerned about amount of redness and patient reports pain and swelling in RLE. Denies fevers, chills, chest pain. Tolerating PO. Review of Systems Review of Systems: All systems reviewed & are unremarkable except as noted in HPI & below Physical Exam Physical Exam: CONSTITUTIONAL: WNWD, vitals as above, generally well- appearing EYES: normal conjunctivae, no scleral icterus ENT: MMM RESPIRATORY: clear to auscultation bilaterally, no crackles, rales or wheezes, normal respiratory effort CARDIOVASCULAR: regular rate and rhythm, S1 and 2 heard without murmurs, gallops or rubs, no JVD, no peripheral edema GASTROINTESTINAL: normal bowel sounds, soft, nontender, nondistended MUSCULOSKELETAL: strength 5/5 throughout, head is normocephalic and atraumatic SKIN: warm and dry, RLE with improved erythema and swelling today from ankle to just distal to knee. Clearing in posterior calf area. NEUROLOGIC: CN II through XII grossly intact, no gross focal deficit PSYCHIATRIC: alert cooperative and oriented to person, place and time. Results & Data Vital Signs (Past 12 Hours) Vital Signs Temp Pulse Pulse Resp BP BP Pulse Ox 11/16/18 16:13 80 11/16/18 15:19 36.6 C 78 16 121/74 95 11/16/18 07:17 36.5 C 83 18 125/77 95 Laboratory Results Short CBC 11/16/18 Range/Units 05:25 WBC 6.49 (4.8-10.8) K/uL Hgb 11.5 L (12.0-16.0) g/dL Hct 35.0 L (37-47) % Plt Count 165 (130-400) K/uL BMP 11/16/18 05:25 Sodium 142 Potassium 3.7 Chloride 111 H Carbon Dioxide 25 BUN 9 Creatinine 0.63 Glucose 88 Calcium 8.5 Medications Administered Current Inpatient Medications Acetaminophen (Tylenol) 650 mg PO Q4H PRN PRN Reason: Pain or Fever Stop: 12/14/18 02:25 Last Admin: 11/16/18 16:14 Dose: 650 mg Documented by: Clindamycin HCl (Cleocin) 300 mg PO Q8H [facility] Stop: 11/25/18 10:29 Last Admin: 11/16/18 10:31 Dose: 300 mg Documented by: Digoxin (Lanoxin) 0.125 mg PO DAILY@1600 [facility] Stop: 12/14/18 15:59 Last Admin: 11/16/18 16:13 Dose: 0.125 mg Documented by: Furosemide (Lasix) 20 mg PO QAM [facility] Stop: 12/15/18 08:59 Last Admin: 11/16/18 08:13 Dose: 20 mg Documented by: Metoprolol Succinate (Toprol Xl) 25 mg PO QAM [facility] Stop: 12/14/18 08:59 Last Admin: 11/16/18 08:13 Dose: 25 mg Documented by: Nitroglycerin (Nitrostat) 0.4 mg SL UD PRN PRN Reason: Chest Pain Stop: 12/14/18 02:25 Ondansetron HCl (Zofran) 4 mg IV Q6H PRN PRN Reason: Nausea Stop: 12/14/18 02:25 Potassium Chloride (Klor-Con M10) 10 meq PO QAM [facility] Stop: 12/15/18 08:59 Last Admin: 11/16/18 08:13 Dose: 10 meq Documented by: Tramadol HCl (Ultram) 50 mg PO NOW [facility] Stop: 11/16/18 16:23 Tramadol HCl (Ultram) 50 mg PO Q4H PRN PRN Reason: Pain Stop: 12/16/18 16:21 Vitamin D (Vitamin D3) 2,000 units PO DAILY [facility] Stop: 12/14/18 08:59 Last Admin: 11/16/18 08:13 Dose: 2,000 units Documented by: Warfarin Sodium (Coumadin) 2.5 mg PO SuTuWeThSa@1600 [facility] Stop: 12/14/18 15:59 Last Admin: 11/14/18 17:22 Dose: 2.5 mg Documented by: Warfarin Sodium (Coumadin) 5 mg PO MoFr@1600 [facility] Stop: 12/16/18 15:59 Last Admin: 11/16/18 16:12 Dose: 5 mg Documented by:
[2018-11-17] MEDS: CLINDAMYCIN HCL 150 MG CAP PO SCH ×2 (02:50→07:22)
[2018-11-17 06:31] LABS: INR 3.5 (0.9-1.1); Prothrombin Time 33.1 Seconds (9.0-12.0)
[2018-11-17] MEDS: POTASSIUM CHLORIDE 10 MEQ TABCR PO SCH (07:22)
[2018-11-17] MEDS: FUROSEMIDE 20 MG TAB PO SCH (07:22)
[2018-11-17] MEDS: METOPROLOL SUCC 25MG EXT REL TAB PO SCH (07:22)
[2018-11-17] MEDS: CHOLECALCIFEROL 1,000 UNITS TAB PO SCH (07:22)
[2018-11-17] MEDS: SACCHAROMYCES BOULARDII 250 MG CAP PO SCH ×2 (08:40→20:37)
[2018-11-17] MEDS: TRAMADOL HCL 50 MG TABLET PO PRN ×2 (08:40→15:24)
--- NOTE | 2018-11-17 12:06 | Hospitalist Progress Note ---
Date of Service November 17, 2018 Assessment & Plan (1) Sepsis: resolved (2) Cellulitis of right lower extremity: Was improving on the clindamycin, but is now seem to worsen overnight. Blood cultures remain they have negative and she clinically is afebrile without chills or other symptoms systemically. As she initially improved on IV vancomycin and IV Levaquin, will reinstitute IV Levaquin at this time. Stop p.o. clindamycin. If she has improvement on the IV Levaquin may switch to p.o. Levaquin with better result. Again, no purulent drainage is present and patient is not a diabetic. Repeat ultrasound of the lower extremity to rule out DVT. (3) Atrial fibrillation, chronic: INR 3.5 this am, continue digoxin and Toprol per home regimen. Warfarin per home dosing is on hold. Trend daily INR. (4) Sleep apnea: Use of home CPAP. (5) DVT prophylaxis: Warfarin Full code Disposition-pending improvement in pain and erythema. Jessica King DO [facility] Hospitalist Subjective Denies fevers chills overnight, however, right lower extremity is more erythematous continues to be swollen and is still rather painful. Exam reveals worsening redness posteriorly despite clindamycin. She otherwise denies any nausea vomiting diarrhea or any symptoms at this time. She is still tolerating food well. Review of Systems Review of Systems: All systems reviewed & are unremarkable except as noted in HPI & below Physical Exam Physical Exam: CONSTITUTIONAL: WNWD, vitals as above, generally well- appearing EYES: normal conjunctivae, no scleral icterus ENT: MMM RESPIRATORY: clear to auscultation bilaterally, no crackles, rales or wheezes, normal respiratory effort CARDIOVASCULAR: regular rate and rhythm, S1 and 2 heard without murmurs, gallops or rubs, no JVD, no peripheral edema GASTROINTESTINAL: normal bowel sounds, soft, nontender, nondistended MUSCULOSKELETAL: strength 5/5 throughout, head is normocephalic and atraumatic SKIN: warm and dry, RLE with worsened erythema and persistent swelling today from ankle to just distal to knee. Posterior calf area with no redness present. Erythema is more continuous today than yesterday. Erythema appears brighter red today. NEUROLOGIC: CN II through XII grossly intact, no gross focal deficit PSYCHIATRIC: alert cooperative and oriented to person, place and time. Results & Data Vital Signs (Past 12 Hours) Vital Signs Temp Pulse Resp BP Pulse Ox 11/17/18 07:51 37.4 C 98 H 18 115/71 92 Medications Administered Current Inpatient Medications Acetaminophen (Tylenol) 650 mg PO Q4H PRN PRN Reason: Pain or Fever Stop: 12/14/18 02:25 Last Admin: 11/16/18 16:14 Dose: 650 mg Documented by: Digoxin (Lanoxin) 0.125 mg PO DAILY@1600 [facility] Stop: 12/14/18 15:59 Last Admin: 11/16/18 16:13 Dose: 0.125 mg Documented by: Furosemide (Lasix) 20 mg PO QAM [facility] Stop: 12/15/18 08:59 Last Admin: 11/17/18 07:22 Dose: 20 mg Documented by: Levofloxacin/Dextrose (Levaquin/D5w) 750 mg in 150 mls @ 100 mls/hr IV Q24H [facility] Stop: 11/27/18 11:59 Metoprolol Succinate (Toprol Xl) 25 mg PO QAM [facility] Stop: 12/14/18 08:59 Last Admin: 11/17/18 07:22 Dose: 25 mg Documented by: Nitroglycerin (Nitrostat) 0.4 mg SL UD PRN PRN Reason: Chest Pain Stop: 12/14/18 02:25 Ondansetron HCl (Zofran) 4 mg IV Q6H PRN PRN Reason: Nausea Stop: 12/14/18 02:25 Potassium Chloride (Klor-Con M10) 10 meq PO QAM [facility] Stop: 12/15/18 08:59 Last Admin: 11/17/18 07:22 Dose: 10 meq Documented by: Saccharomyces Boulardii (Florastor) 250 mg PO BID [facility] Stop: 12/17/18 08:59 Last Admin: 11/17/18 08:40 Dose: 250 mg Documented by: Tramadol HCl (Ultram) 50 mg PO Q4H PRN PRN Reason: Pain Stop: 12/16/18 16:21 Last Admin: 11/17/18 08:40 Dose: 50 mg Documented by: Vitamin D (Vitamin D3) 2,000 units PO DAILY [facility] Stop: 12/14/18 08:59 Last Admin: 11/17/18 07:22 Dose: 2,000 units Documented by: Warfarin Sodium (Coumadin) 2.5 mg PO SuTuWeThSa@1600 [facility] Stop: 12/14/18 15:59 Last Admin: 11/14/18 17:22 Dose: 2.5 mg Documented by: Warfarin Sodium (Coumadin) 5 mg PO MoFr@1600 [facility] Stop: 12/16/18 15:59 Last Admin: 11/16/18 16:12 Dose: 5 mg Documented by:
[2018-11-17] MEDS: LEVOFLOXACIN/D5W 750 MG/150 ML BAG IV SCH (13:09)
--- NOTE | 2018-11-17 15:17 | Ultrasound Report ---
US venous doppler LE RT HISTORY: 68 years-old Female erythematous, swollen leg, ro dvt acute right lower extremity pain and swelling COMPARISON: Duplex venous Doppler study 11/13/2018 TECHNIQUE: Multiple real-time sonographic images of the right lower extremity deep venous structures were obtained assessing grayscale appearance, color and spectral flow FINDINGS: Normal flow, compressibility, phasicity and augmentation of the right lower extremity deep venous str uctures. Limited visualization of the calf veins. IMPRESSION: No sonographic evidence of deep venous thrombosis. The above report was generated using voice recognition software. It may contain grammatical, syntax o r spelling errors. Electronically signed by: Dixon Lorenzana M.D. 11/17/2018 3:16 PM
[2018-11-17] MEDS: DIGOXIN 0.125 MG TAB PO SCH (16:07)
[2018-11-17] MEDS ORDERED: VANCOMYCIN CONSULT ACTIVE PRN (16:50)
[2018-11-17] MEDS ORDERED: VANCOMYCIN HCL 2,000 MG in SODIUM CHLORIDE 0.9% 500 ML IV ONE (17:30)
--- NOTE | 2018-11-17 18:28 | Hospitalist Progress Note ---
Date of Service November 17, 2018 Assessment & Plan (1) Sepsis: resolved (2) Cellulitis of right lower extremity: Was improving on the clindamycin, but is now seem to worsen overnight. Blood cultures remain they have negative and she clinically is afebrile without chills or other symptoms systemically. As she initially improved on IV vancomycin and IV Levaquin, will reinstitute IV Levaquin at this time. Stop p.o. clindamycin. If she has improvement on the IV Levaquin may switch to p.o. Levaquin with better result. Again, no purulent drainage is present and patient is not a diabetic. Repeat ultrasound of the lower extremity to rule out DVT. (3) Atrial fibrillation, chronic: INR 3.5 this am, continue digoxin and Toprol per home regimen. Warfarin per home dosing is on hold. Trend daily INR. (4) Sleep apnea: Use of home CPAP. (5) DVT prophylaxis: Warfarin Full code Disposition-pending improvement in pain and erythema. Jessica King DO [facility] Hospitalist Results & Data Vital Signs (Past 12 Hours) Vital Signs Temp Pulse Pulse Resp BP BP Pulse Ox 11/17/18 16:07 96 H 11/17/18 15:58 37.5 C 96 H 18 115/64 94 11/17/18 07:51 37.4 C 98 H 18 115/71 92 Diagnostic Findings US venous doppler LE RT HISTORY: 68 years-old Female erythematous, swollen leg, ro dvt acute right lower extremity pain and swelling COMPARISON: Duplex venous Doppler study 11/13/2018 TECHNIQUE: Multiple real-time sonographic images of the right lower extremity deep venous structures were obtained assessing grayscale appearance, color and spectral flow FINDINGS: Normal flow, compressibility, phasicity and augmentation of the right lower extremity deep venous structures. Limited visualization of the calf veins. IMPRESSION: No sonographic evidence of deep venous thrombosis. Medications Administered Current Inpatient Medications Acetaminophen (Tylenol) 650 mg PO Q4H PRN PRN Reason: Pain or Fever Stop: 12/14/18 02:25 Last Admin: 11/16/18 16:14 Dose: 650 mg Documented by: Digoxin (Lanoxin) 0.125 mg PO DAILY@1600 [facility] Stop: 12/14/18 15:59 Last Admin: 11/17/18 16:07 Dose: 0.125 mg Documented by: Furosemide (Lasix) 20 mg PO QAM [facility] Stop: 12/15/18 08:59 Last Admin: 11/17/18 07:22 Dose: 20 mg Documented by: Levofloxacin/Dextrose (Levaquin/D5w) 750 mg in 150 mls @ 100 mls/hr IV Q24H [facility] Stop: 11/27/18 12:29 Last Infusion: 11/17/18 14:40 Dose: Infused Documented by: Vancomycin HCl 2,000 mg/ (Sodium Chloride) 540 mls @ 200 mls/hr IV TODAY@1730 ONE Stop: 11/17/18 20:11 Last Infusion: 11/17/18 18:01 Dose: 0 mls/hr Documented by: Metoprolol [facility] ([facility]l) [facility] Stop[facility] 12/14/18 08:59 Last Admin: 11/17/18 07:22 Dose: 25 mg Documented by: Miscellaneous Information (Consult) 1 ea N/A UD PRN PRN Reason: Consult Stop: 12/17/18 16:49 Nitroglycerin (Nitrostat) 0.4 mg SL UD PRN PRN Reason: Chest Pain Stop: 12/14/18 02:25 Ondansetron HCl (Zofran) 4 mg IV Q6H PRN PRN Reason: Nausea Stop: 12/14/18 02:25 Potassium Chloride (Klor-Con M10) [facility] Stop: 12/15/18 08:59 Last Admin: 11/17/18 07:22 Dose: 10 meq Documented by: Saccharomyces Boulardii (Florastor) 250 mg PO BID [facility] Stop: 12/17/18 08:59 Last Admin: 11/17/18 08:40 Dose: 250 mg Documented by: Tramadol HCl (Ultram) 50 mg PO Q4H PRN PRN Reason: Pain Stop: 12/16/18 16:21 Last Admin: 11/17/18 15:24 Dose: 50 mg Documented by: Vitamin D (Vitamin D3) 2,000 units PO DAILY [facility] Stop: 12/14/18 08:59 Last Admin: 11/17/18 07:22 Dose: 2,000 units Documented by: Warfarin Sodium (Coumadin) 2.5 mg PO SuTuWeThSa@1600 [facility] Stop: 12/14/18 15:59 Last Admin: 11/14/18 17:22 Dose: 2.5 mg Documented by: Warfarin Sodium (Coumadin) 5 mg PO MoFr@1600 [facility] Stop: 12/16/18 15:59 Last Admin: 11/16/18 16:12 Dose: 5 mg Documented by:
--- NOTE | 2018-11-17 21:56 | Pharmacy Report ---
Pharmacy Abx Initial Consult - Date of Service November 17, 2018 - Pharmacy Dosing Scope Date of Consult: 11/17/18 Consultation requested by: Dr. King Pharmacy is consulted to restart IV Vancomycin dosing therapy, order appropriate labs and adjust drug dose/frequency. - Subjective The patient is a 68 year old F admitted on 11/14/18 01:29 for possible sepsis from skin source and possible PNX. Dr. Whelan had started Vancomycin initially but it was discontinued soon after before any trough level drawn. Today Dr. King notes she had been improving on Clindamycin until today so she restarted the Vancomycin. She is also being maintained on Levaquin for PNX now as PO dosage with improvement. - Objective Height: 5 ft 1.5 in Weight: 89.5 kg Vital Signs (Past 12hrs): Vital Signs Temp Pulse Pulse Resp BP Pulse Ox 11/17/18 16:07 96 H 11/17/18 15:58 37.5 C 96 H 18 115/64 94 - Assessment & Plan Assessment 68 year old F Plan Vancomycin IV * Estimated PK Parameters: Vd 0.6 L/kg, Prabhu 0.075 hr-1, t1/2 ~9hr * Loading dose: 2000 mg (22 mg/kg) * Maintenance dose: 1250 mg IV (14 mg/kg) every 12 hours * Goal trough level : at least 15 mcg/mL * Trough level ordered prior to 2000 dose on 11/19/18 Pharmacy will continue to follow and will adjust dose/frequency as necessary. Thank you.
[2018-11-18 05:49] LABS: Hematocrit (blood only) 32.7 % (37-47); Mean Corpuscular Hgb Conc 33.6 g/dL (32-36); Mean Corpuscular Volume 89.3 fL (80-100); Mean Platelet Volume 9.9 fL (7.4-10.4); Platelet Count 187 K/uL (130-400); RDW Coefficient of Variation 14.2 % (11.5-14.5); RDW Standard Deviation 46.8 fL (36.4-46.3); Red Blood Count 3.66 M/uL (4.2-5.4)
[2018-11-18 05:56] LABS: INR 3.1 (0.9-1.1)
[2018-11-18 06:15] LABS: BUN Creatinine Ratio 11.9 (10-20); Calcium 8.1 mg/dl (8.5-10.1); Creatinine Clr Calc Pharmacy 97.9 ml/min; Est GFR (African American) 110.1; Potassium 3.6 mmol/L (3.5-5.1)
[2018-11-18] MEDS: CHOLECALCIFEROL 1,000 UNITS TAB PO SCH (07:37)
[2018-11-18] MEDS: VANCOMYCIN HCL 1,250 MG in SODIUM CHLORIDE 0.9% 250 ML IV SCH ×2 (07:37→19:49)
[2018-11-18] MEDS: FUROSEMIDE 20 MG TAB PO SCH (07:37)
[2018-11-18] MEDS: SACCHAROMYCES BOULARDII 250 MG CAP PO SCH ×2 (07:37→20:40)
[2018-11-18] MEDS: POTASSIUM CHLORIDE 10 MEQ TABCR PO SCH (07:37)
[2018-11-18] MEDS: METOPROLOL SUCC 25MG EXT REL TAB PO SCH (07:38)
[2018-11-18] MEDS ORDERED: VANCOMYCIN HCL 1,250 MG in SODIUM CHLORIDE 0.9% 250 ML IV SCH (10:00)
[2018-11-18] MEDS: LEVOFLOXACIN/D5W 750 MG/150 ML BAG IV SCH (12:23)
--- NOTE | 2018-11-18 15:17 | Hospitalist Progress Note ---
Date of Service November 18, 2018 Assessment & Plan (1) Sepsis: resolved (2) Cellulitis of right lower extremity: Cont IV abx as pain, swelling and erythema are still present. Cellulitis area involves from proximal ankle all the way to knee, approx 50% of her leg. Blood cultures remain they have negative and she clinically is afebrile without chills or other symptoms systemically. US neg for DVT. ID for recs in am. (3) Atrial fibrillation, chronic: Continue digoxin and Toprol per home regimen. Warfarin restarted as INR 3.1. (4) Sleep apnea: Use of home CPAP. (5) DVT prophylaxis: Warfarin Full code Disposition-pending improvement in pain and erythema. Jessica King DO [facility] Hospitalist Subjective Legs looked worse yesterday with worsened erythema and inflammation. Pain was associated with swelling and that pain is still present requiring pain medic ations. Was placed on Vanc and Levaquin IV yesterday with minimal improvement today. No fevers or chills. Tolerating PO and otherwise feeling well. GI symptoms have been resolved since HD2 without return. Review of Systems Review of Systems: All systems reviewed & are unremarkable except as noted in HPI & below Physical Exam Physical Exam: CONSTITUTIONAL: WNWD, vitals as above, generally well- appearing EYES: normal conjunctivae, no scleral icterus ENT: MMM RESPIRATORY: clear to auscultation bilaterally, no crackles, rales or wheezes, normal respiratory effort CARDIOVASCULAR: regular rate and rhythm, S1 and 2 heard without murmurs, gallops or rubs, no JVD, no peripheral edema GASTROINTESTINAL: normal bowel sounds, soft, nontender, nondistended MUSCULOSKELETAL: strength 5/5 throughout, head is normocephalic and atraumatic SKIN: warm and dry, RLE with erythema and persistent swelling today from ankle to just distal to knee. Posterior calf area with no redness present. Erythema is improved. NEUROLOGIC: CN II through XII grossly intact, no gross focal deficit PSYCHIATRIC: alert cooperative and oriented to person, place and time. Results & Data Vital Signs (Past 12 Hours) Vital Signs Temp Pulse Resp BP Pulse Ox 11/18/18 07:01 37.2 C 81 18 147/82 H 94 Laboratory Results Short CBC 11/18/18 Range/Units 05:16 WBC 12.00 H (4.8-10.8) K/uL Hgb 11.0 L (12.0-16.0) g/dL Hct 32.7 L (37-47) % Plt Count 187 (130-400) K/uL [facility] 11/18/18 05:16 Sodium 137 Potassium 3.6 Chloride 107 Carbon Dioxide 25 BUN 6 L Creatinine 0.55 L Glucose 98 Calcium 8.1 L Diagnostic Findings US venous doppler LE RT HISTORY: 68 years-old Female erythematous, swollen leg, ro dvt acute right lower extremity pain and swelling COMPARISON: Duplex venous Doppler study 11/13/2018 TECHNIQUE: Multiple real-time sonographic images of the right lower extremity deep venous structures were obtained assessing grayscale appearance, color and spectral flow FINDINGS: Normal flow, compressibility, phasicity and augmentation of the right lower extremity deep venous structures. Limited visualization of the calf veins. IMPRESSION: No sonographic evidence of deep venous thrombosis. Medications Administered Current Inpatient Medications Acetaminophen (Tylenol) 650 mg PO Q4H PRN PRN Reason: Pain or Fever Stop: 12/14/18 02:25 Last Admin: 11/16/18 16:14 Dose: 650 mg Documented by: Digoxin (Lanoxin) 0.125 mg PO DAILY@1600 [facility] Stop: 12/14/18 15:59 Last Admin: 11/17/18 16:07 Dose: 0.125 mg Documented by: Furosemide (Lasix) 20 mg PO QAM [facility] Stop: 12/15/18 08:59 Last Admin: 11/18/18 07:37 Dose: 20 mg Documented by: Levofloxacin/Dextrose (Levaquin/D5w) 750 mg in 150 mls @ 100 mls/hr IV Q24H [facility] Stop: 11/27/18 12:29 Last Infusion: 11/18/18 13:55 Dose: Infused Documented by: Vancomycin HCl 1,250 mg/ (Sodium Chloride) 275 mls @ 125 mls/hr IV Q12H [facility] Stop: 11/28/18 07:59 Last Infusion: 11/18/18 09:50 Dose: Infused Documented by: Metoprolol Succinate (Toprol Xl) 25 mg PO QAM [facility] Stop: 12/14/18 08:59 Last Admin: 11/18/18 07:38 Dose: 25 mg Documented by: Miscellaneous Information (Consult) 1 ea N/A UD PRN PRN Reason: Consult Stop: 12/17/18 16:49 Nitroglycerin (Nitrostat) 0.4 mg SL UD PRN PRN Reason: Chest Pain Stop: 12/14/18 02:25 Ondansetron HCl (Zofran) 4 mg IV Q6H PRN PRN Reason: Nausea Stop: 12/14/18 02:25 Potassium Chloride (Klor-Con M10) 10 meq PO QAM [facility] Stop: 12/15/18 08:59 Last Admin: 11/18/18 07:37 Dose: 10 meq Documented by: Saccharomyces Boulardii (Florastor) 250 mg PO BID [facility] Stop: 12/17/18 08:59 Last Admin: 11/18/18 07:37 Dose: 250 mg Documented by: Tramadol HCl (Ultram) 50 mg PO Q4H PRN PRN Reason: Pain Stop: 12/16/18 16:21 Last Admin: 11/17/18 15:24 Dose: 50 mg Documented by: Vitamin D (Vitamin D3) 2,000 units PO DAILY [facility] Stop: 12/14/18 08:59 Last Admin: 11/18/18 07:37 Dose: 2,000 units Documented by: Warfarin Sodium (Coumadin) 2.5 mg PO SuTuWeThSa@1600 [facility] Stop: 12/14/18 15:59 Last Admin: 11/14/18 17:22 Dose: 2.5 mg Documented by: Warfarin Sodium (Coumadin) 5 mg PO MoFr@1600 [facility] Stop: 12/16/18 15:59 Last Admin: 11/16/18 16:12 Dose: 5 mg Documented by:
[2018-11-18] MEDS: DIGOXIN 0.125 MG TAB PO SCH (16:52)
[2018-11-18] MEDS: WARFARIN SOD 2.5 MG TAB PO SCH (17:07)
[2018-11-19 05:57] LABS: Hematocrit (blood only) 32.8 % (37-47); Mean Corpuscular Hgb Conc 33.5 g/dL (32-36); Mean Corpuscular Volume 87.9 fL (80-100); Mean Platelet Volume 10.1 fL (7.4-10.4); Platelet Count 210 K/uL (130-400); RDW Coefficient of Variation 14.2 % (11.5-14.5); Red Blood Count 3.73 M/uL (4.2-5.4); White Blood Count 10.62 K/uL (4.8-10.8)
[2018-11-19 06:06] LABS: INR 2.5 (0.9-1.1); Prothrombin Time 24.1 Seconds (9.0-12.0)
[2018-11-19 06:29] LABS: BUN Creatinine Ratio 12.2 (10-20); Calcium 8.6 mg/dl (8.5-10.1); Creatinine Clr Calc Pharmacy 92.9 ml/min; Est GFR (African American) 108.2; Est GFR (Non-African American) 93.4; Potassium 3.6 mmol/L (3.5-5.1)
[2018-11-19] MEDS: METOPROLOL SUCC 25MG EXT REL TAB PO SCH (07:46)
[2018-11-19] MEDS: SACCHAROMYCES BOULARDII 250 MG CAP PO SCH (07:47)
[2018-11-19] MEDS: CHOLECALCIFEROL 1,000 UNITS TAB PO SCH (07:47)
[2018-11-19] MEDS: VANCOMYCIN HCL 1,250 MG in SODIUM CHLORIDE 0.9% 250 ML IV SCH (07:47)
[2018-11-19] MEDS: POTASSIUM CHLORIDE 10 MEQ TABCR PO SCH (07:47)
[2018-11-19] MEDS: FUROSEMIDE 20 MG TAB PO SCH (07:47)
--- NOTE | 2018-11-19 10:12 | Infectious Disease Progress Nt ---
Date of Service November 19, 2018 Assessment & Plan (1) Cellulitis of right lower extremity: clinda changed to vanco and levaquin, can continue while in hospital, upon d/c can transition to po levaquin and doxy to complete additional 10 days. agree with lymphedema clinic eval post d/c. elevate leg. Subjective pt transitioned to IV vanco and levaquin over weekend due to erythema. remains afebrile. blood cultures negative, repeat doppler negative for clot. tolerating abx. wbc improved to 10 Results & Data Vital Signs (Past 12 Hours) Vital Signs Temp Pulse Resp BP Pulse Ox 11/19/18 07:12 36.4 C L 90 16 111/76 98 11/19/18 00:00 37.1 C 88 18 110/60 95 Laboratory Results Microbiology 11/13/18 23:39 Blood Aerobic Blood Culture - Final No growth in Aerobic bottle after 5 days. 11/13/18 23:39 Blood Anaerobic Blood Culture - Final No growth in Anaerobic bottle after 5 days. 11/13/18 23:11 Blood Aerobic Blood Culture - Final No growth in Aerobic bottle after 5 days. 11/13/18 23:11 Blood Anaerobic Blood Culture - Final No growth in Anaerobic bottle after 5 days.
--- NOTE | 2018-11-19 11:42 | Discharge Summary ---
Date of Service November 19, 2018 Admission HPI Per Admitting Provider HISTORY OF PRESENT ILLNESS: This patient is a 68-year-old female with past medical history significant for atrial fibrillation, diastolic congestive heart failure, macular degeneration and mild obstructive sleep apnea who presents with hypotension. The patient was in the Emergency Room early in the morning with a complaint of fever and hypotension. She was found to have white count of 13,000. Imaging studies showed lower extremity has some possible cellulitis and there is no deep venous thrombosis. She also complains of nausea, vomiting and diarrhea. CAT scan of the abdomen and pelvis was done which except for mild right inguinal lymphadenopathy showed no acute findings. CTA of the chest was also done. There was some mild asymmetric nodular intralobular septal thickening within upper lung zone, right greater than left, nonspecific, infectious or inflammatory pneumonitis was considered and also follow up CTA chest in 1 month to further evaluate. The patient's blood pressure improved with fluid bolus and she was discharged home on Keflex and advised to come back if worsening symptoms. The patient was again having temperatures and hypotension at home. Blood pressure was in 80's With fluids Blood pressure improving currently. The patient states she was in [place] and she came back on last Monday and after that she had 1 day of fever that got resolved and last Monday she noticed swelling and erythema in her right lower extremity. She ate some [place] food from [employer] and since yesterday, she had several episodes of nausea, vomiting and diarrhea.and then developed fever and hypotension that is why she came to the Emergency Room in the morning. Currently, nausea, vomiting and diarrhea resolved. Denies any chest pain. She always gets short of breath on exertion because of her atrial fibrillation. She denies any cough. No headache. No blurred vision. No runny nose. No sore throat. No difficulty swallowing. Appetite is okay. Currently, no abdominal pain. No black stool or blood in the stools. No hematuria. No burning micturition. Otherwise, she ambulates okay. She lives with her . Admission Exam Per Admitting Provider PHYSICAL EXAMINATION: GENERAL: The patient is obese, not in acute distress. VITAL SIGNS: Temperature was 38.3, pulse 76, respiratory rate 20, blood pressure 94/52 and oxygen 98% on room air. HEENT: No pallor. No icterus. Pupils are equal, round and reactive to light. NECK: No JVD. No neck mass. No carotid bruit. CARDIOVASCULAR: S1, S2 heard. Regular rate and rhythm. No murmur. No gallop. RESPIRATORY SYSTEM: Normal AP diameter. No accessory muscle use. No wheezing. No crackles. ABDOMEN: Soft. Bowel sounds present. Nontender. CENTRAL NERVOUS SYSTEM: Cranial nerves II through XII grossly intact. Nonfocal. EXTREMITIES: Lower extremity edema present. Right lower extremity is erythematous. Principal Diagnosis sepsis 2/2 LE cellulitis, resolved acute gastroenteritis, resolved Discharge Data Allergies Allergy/AdvReac Type Severity Reaction Status Date / Time No Known Allergies Allergy Verified 11/13/18 07:28 Consultations 11/13/18 23:48 ED Decision to Admit Stat 11/16/18 10:21 Consult Infectious Diseases Routine Ordered Studies 11/17/18 11:56 US venous doppler LE RT Urgent Hospital Course (1) Sepsis: resolved (2) Cellulitis of right lower extremity: Was improving on the clindamycin, but is now seem to worsen overnight. Blood cultures remain they have negative and she clinically is afebrile without chills or other symptoms systemically. As she initially improved on IV vancomycin and IV Levaquin, will reinstitute IV Levaquin at this time. Stop p.o. clindamycin. If she has improvement on the IV Levaquin may switch to p.o. Levaquin with better result. Again, no purulent drainage is present and patient is not a diabetic. Repeat ultrasound of the lower extremity to rule out DVT. (3) Atrial fibrillation, chronic: INR 3.5 this am, continue digoxin and Toprol per home regimen. Warfarin per home dosing is on hold. Trend daily INR. (4) Sleep apnea: She was admitted to the hospitalist service and empirically treated with IV vancomycin and Levaquin with IV fluid resuscitation. Hemodynamics stabilized and she was resuscitated from a sepsis standpoint. GI symptoms resolved overnight. A venous Doppler revealed no evidence of DVT in the right lower extremity. A CT of her chest with contrast revealed mild asymmetric nodular i ntralobar septal thickening within an upper lung zone prominent distribution, right greater than left consistent with an infectious versus inflammatory pneumonitis with lymphangitic carcinomatosis in the differential. No respiratory symptoms were present during admission. Follow-up CT was recommended in one month for further evaluation. She also had nonspecific adenopathy of the chest which will also need to be followed up. There was no evidence of pulmonary thromboembolic disease. There was no evidence of acute aortic pathology. A CT of her abdomen was performed revealing no bowel wall thickening or obstruction. Left-sided nephrolithiasis was seen without evidence of ureteral stones or hydronephrosis. There was interval development of right inguinal lymphadenopathy possibly reactive to the cellulitis. A repeat ultrasound was recommended to demonstrate resolution when improved and exclude the less likely possibility of a lymphoproliferative disorder. There was also a slight increase in size and a 9 mm right retroperitoneal peritoneal soft tissue nodule/lymph node which was of uncertain clinical significance. She was improved overnight and switched to Keflex 500 mg 4 times daily. White blood cell count had improved. Her gastrointestinal symptoms did not return and she was tolerating p.o. on hospital day 2. She remained afebrile. The following day the cellulitis clearly worsened with the cephalexin, therefore, she was switched to clindamycin, however, her cellulitis continued to worsen and looked similar to admission on the clindamycin therapy including increased swelling, bright red erythema and pain requiring pain medications. Therefore, she was switched back to IV vancomycin and IV Levaquin for the next 48 hours with some improvement. Infectious disease was consulted and recommended Levaquin and doxycycline on discharge for an additional 10-day course. Lymphedema clinic post discharge was recommended. At time of discharge a [id number] examination was performed revealing a hemodynamically stable and afebrile patient he was tolerating p.o. and mentating and ambulating at baseline. Physical exam revealed persistent cellulitis in the right lower extremity from the proximal ankle to the level of the distal knee which was somewhat improved. Lungs were clear to auscultation and heart sounds revealed a an irregularly irregular rhythm with a normal rate and no evidence of murmurs. There was no evidence of ralf edema. She was discharged in stable condition with close primary care follow-up recommended. Total Time Total Time Spent Total Time Spent (In Minutes): 60 Total Time Includes: Examination of the Patient, Discharge Planning, Medication Reconciliation and Communication With Other Providers Discharge Plan Discharge Items Patient Disposition: Home - Self-Care Reason For Visit: HYPOTENSION Discharge Diagnosis: sepsis 2/2 LE cellulitis, resolved acute gastroenteritis, resolved Condition: Good Discharge Goals: Improve disease control Activity: Resume your previous activity Non-emergency contact: Primary Care Provider Call non-emergency contact if: you have any medication questions, your symptoms worsen, your pain is not controlled, your pain is worsening and you have a fever Follow-up/Referrals: Stephania Hanna, [Primary Care Provider] - Diet: Heart Healthy Addtl Provider Instructions: Please take all medications as instructed on discharge list below. It is OK to use ACETAMINOPHEN 650mg every 4-6 hours as needed for pain. Please do not exceed 3000mg of this drug in 24 hours. Please ensure close followup with the Anticoagulation Clinic this week to ensure INR is at goal. Please follow-up with your primary care provider within one week of discharge to ensure you are doing well after hospital discharge. You have an appointment on: 11/22/2018 1:00 PM Stephania Hanna DO [facility] It is also recommended that you establish care in the lymphedema clinic in [facility]. This can be orchestrated through your primary care provider when you follow-up later this week. It was a pleasure taking care of you! Please call if you have any questions or problems. You can reach a [facility] hospitalist on duty at [facility] 24 hours a day by calling [phone]. Take care of yourself. Jessica iKng DO [facility] Hospitalist Prescriptions: New Florastor 250 mg capsule 250 mg PO BID Qty: 30 RF: 0 doxycycline hyclate 100 mg capsule 100 mg PO BID 10 Days Qty: 20 RF: 0 levofloxacin [Levaquin] 500 mg tablet 500 mg PO DAILY 10 Days Qty: 10 RF: 0 Continued warfarin [Jantoven] 2.5 mg Tablet 2.5 mg PO 5XWK RF: 0 potassium chloride 10 mEq Tablet Extended Release 10 meq PO QAM RF: 0 warfarin [Jantoven] 5 mg Tablet 5 mg PO 2XWK RF: 0 digoxin 125 mcg Tablet 125 mcg PO QAM RF: 0 furosemide 20 mg Tablet 20 mg PO QAM RF: 0 metoprolol succinate 25 mg Tablet Extended Release 24 Hr 25 mg PO QAM RF: 0 cholecalciferol (vitamin D3) [Vitamin D3] 2,000 unit Capsule 2,000 unit PO DAILY RF: 0 omega [id number] oil [Fish Oil] 1,000 mg (120 mg-180 mg) Capsule 1 cap PO DAILY RF: 0 Discontinued cephalexin [Keflex] 500 mg capsule 500 mg PO QID 7 Days Qty: 28 RF: 0 Stand-Alone Forms: [facility]charge Orders: Discharge Order (Routine); Ordered 11/19/18 Ordered By: Jessica King Admission Data Admit Date/Time: 11/14/18 01:29 Attending Provider: Jessica King Admit Provider: Puma Whelan Primary Care Provider: Stephania Hanna Other Providers: Puma Whelan ; Genesis Kuo Service: Telemetry Medical Other Interventions: Discharge Summary Assessment (RN) Last Done: 11/19/18 12:52 DC Date/Time DO NOT enter until pt leaves facility: 11/19/18 13:14
[2018-11-19] MEDS ORDERED: VANCOMYCIN TROUGH ONE (19:30)
[2018-11-20] MEDS ORDERED: VANCOMYCIN TROUGH ONE (08:00)
== END 2018-11-19 13:14 | disposition home or self-care (01) | DRG 872 ==
LOC: ED 21:28 → 2N 11-14 01:29